=== PATIENT | female | born 1960 | race African-American/Black ===

== ENCOUNTER 2020-05-17 09:05 | Emergency (ER) | payer OTHER ==
[~2020-05-17] VITALS: Ht 157.5 cm; Wt 113.4 kg
[2020-05-17] MEDS ORDERED: CELECOXIB100 MG PO (09:34)
[2020-05-17] MEDS ORDERED: BUPROPION XL150 MG PO (09:34)
[2020-05-17] MEDS ORDERED: TRAMADOL 50 MG50 MG PO (09:34)
[2020-05-17] MEDS ORDERED: CYCLOBENZAPRINE10 MG PO (09:35)
[2020-05-17] MEDS ORDERED: CLONIDINE HCL0.1 MG PO (09:35)
[2020-05-17] MEDS ORDERED: METOPROLOL SUCC50 MG PO (09:35)
[2020-05-17] MEDS ORDERED: SOLIFENACIN SUC10 MG PO (09:35)
[2020-05-17] MEDS ORDERED: HYDROCHLOROTHIA25 M2 PO (09:35)
[2020-05-17] MEDS ORDERED: LOVASTATIN 20 M20 MG PO (09:35)
[2020-05-17 10:30] LABS: ANION GAP 14 mmol/L (7-16); BUN 9 mg/dL (7-18); CALCIUM 9.8 mg/dL (8.5-10.1); CHLORIDE 104 mmol/L (98-107); CO2 24 mmol/L (21-32); GLUCOSE 106 mg/dL (74-106); POTASSIUM 3.7 mmol/L (3.5-5.1); SODIUM 142 mmol/L (136-145)
[2020-05-17 10:33] LABS: ABSOLUTE NEUTROPHILS 3.2 thou/uL (1.4-8.2); BASOPHILS 0.7 % (0.0-2.0); HEMATOCRIT 44.1 % (37.0-47.0); HEMOGLOBIN 14.4 gm/dL (12.0-15.0); MCH 28.8 pg (26.0-34.0); MCHC 32.6 g/dL (28.0-37.0); MCV 88.5 fL (80.0-100.0); PLATELET COUNT 319 thou/uL (150-400); POLYS 42.3 % (36.0-66.0); RBC 4.99 mil/uL (4.20-5.00); RDW 14.2 % (10.5-14.5); WBC 7.6 thou/uL (4.0-11.0)
[2020-05-17 10:40] LABS: DIRECT BILIRUBIN 0.2 mg/dL (<0.1-0.2); SGOT 11 U/L (15-37); SGPT 18 U/L (30-65); TOTAL BILIRUBIN 0.6 mg/dL (0.2-1.0); TOTAL PROTEIN 8.4 g/dL (6.4-8.2); TROPONIN-I <0.06 ng/mL (<0.06)
[2020-05-17] MEDS ORDERED: DOXYCYCLINE 10100 M2 PO (12:13)
[2020-05-17] MEDS ORDERED: VENTOLIN HFA 1818 GM INH (12:13)
[2020-05-17] MEDS ORDERED: PROMETH-CODEIN 65 ML PO (12:13)
[2020-05-17] MEDS ORDERED: PREDNISONE 20 M20 M1 PO (12:13)
--- NOTE | 2020-05-17 12:17 | EKG ---
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 : 1960 Requested By: Manjit Friedman Order Number: [id number] MD: David Gallego Measurements Intervals [place] Rate: 59 P: 64 MN: 141 QRS: -13 QRSD: 91 T: 4 QT: 523 QTc: 519 Interpretive Statements Sinus rhythm Atrial premature complex Probable left atrial enlargement Abnormal R-wave progression, early transition Left ventricular hypertrophy Prolonged QT interval No previous ECG available for comparison Electronically Signed On 05-17-2020 12:16:51 TECHNICAL SUPPORT MANAGER by David Gallego [email or web address] <ELECTRONICALLY SIGNED> By: David Gallego MD, [facility] 05/17/20 1216 1100 [facility] David Gallego MD, FACC /EPI
[2020-05-17 13:07] VITALS: BP 179/65
== END 2020-05-17 13:09 | disposition home or self-care (01) ==
LOC: ER 09:05
PROVIDERS: Emergency Medicine
DX: J44.1 Chronic obstructive pulmonary disease with (acute) exacerbation (principal); Z20.828 Contact with and (suspected) exposure to other viral communicable diseases; M25.551 Pain in right hip; F17.210 Nicotine dependence, cigarettes, uncomplicated; Z79.899 Other long term (current) drug therapy

== ENCOUNTER 2020-06-05 23:14 | Emergency (ER) | payer OTHER ==
[~2020-06-05] VITALS: Ht 157.5 cm; Wt 90.7 kg
[~2020-06-05 23:14] MED LIST: BUPROPION XL150 MG PO; CELECOXIB100 MG PO; CLONIDINE HCL0.1 MG PO; CYCLOBENZAPRINE10 MG PO; DOXYCYCLINE 10100 M2 PO; HYDROCHLOROTHIA25 M2 PO; LOVASTATIN 20 M20 MG PO; METOPROLOL SUCC50 MG PO; PREDNISONE 20 M20 M1 PO; PROMETH-CODEIN 65 ML PO; SOLIFENACIN SUC10 MG PO; TRAMADOL 50 MG50 MG PO; VENTOLIN HFA 1818 GM INH
[2020-06-06 00:15] LABS: ABSOLUTE NEUTROPHILS 3.3 thou/uL (1.4-8.2); EOSINOPHILS 2.1 % (0.0-3.0); HEMOGLOBIN 13.8 gm/dL (12.0-15.0); LYMPHOCYTES 46.3 % (24.0-44.0); MCHC 32.8 g/dL (28.0-37.0); MCV 88.5 fL (80.0-100.0); MONOCYTES 12.8 % (1.0-8.0); PLATELET COUNT 300 thou/uL (150-400); POLYS 36.8 % (36.0-66.0); RBC 4.75 mil/uL (4.20-5.00); RDW 14.8 % (10.5-14.5)
[2020-06-06 00:21] LABS: ANION GAP 8 mmol/L (7-16); BUN 22 mg/dL (7-18); CALCIUM 9.5 mg/dL (8.5-10.1); CHLORIDE 103 mmol/L (98-107); CO2 26 mmol/L (21-32); CREATININE 1.5 mg/dL (0.6-1.0); GLUCOSE 96 mg/dL (74-106); POTASSIUM 3.1 mmol/L (3.5-5.1); SODIUM 137 mmol/L (136-145)
[2020-06-06 00:30] LABS: TROPONIN-I <0.06 ng/mL (<0.06)
[2020-06-06] MEDS ORDERED: ZPAK PO (03:36)
[2020-06-06] MEDS ORDERED: PROAIR HFA8.5 GM INH (03:36)
[2020-06-06] MEDS ORDERED: TRAMADOL 50 MG50 MG PO (03:36)
[2020-06-06 03:46] VITALS: BP 168/62
--- NOTE | 2020-06-06 14:23 | EKG ---
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[facility] : 1960 Requested By: Karen Palma Order Number: [id number] MD: David Gallego Measurements Intervals [place] Rate: 76 P: 76 MS: 138 QRS: 12 QRSD: 270 T: 53 QT: 424 QTc: 477 Interpretive Statements Sinus rhythm Left ventricular hypertrophy Compared to ECG 05/17/2020 11:00:59 Atrial premature complex(es) no longer present Prolonged QT interval no longer present Electronically Signed On 06-06-2020 14:23:22 COOK APPRENTICE by David Gallego [email or web address] <ELECTRONICALLY SIGNED> By: David Gallego MD, [facility] 06/06/20 1423 2323 22 David Gallego MD, FACC /EPI
== END 2020-06-06 03:47 | disposition home or self-care (01) ==
LOC: ER 23:14
PROVIDERS: Emergency Medicine
DX: R05 Cough (principal); Z20.828 Contact with and (suspected) exposure to other viral communicable diseases; R09.89 Other specified symptoms and signs involving the circulatory and respiratory systems; M10.9 Gout, unspecified; F17.210 Nicotine dependence, cigarettes, uncomplicated; J44.9 Chronic obstructive pulmonary disease, unspecified; I10 Essential (primary) hypertension; Z79.899 Other long term (current) drug therapy; Z98.890 Other specified postprocedural states